=== PATIENT | female | born 1955 ===

== ENCOUNTER 2018-10-27 06:57 | Day surgery (SDC) | payer OTHER ==
[2016-07-30 08:21] VITALS: BMI 26.4
[2018-10-27 07:35] VITALS: TEMP 97.8
[2018-10-27] MEDS ORDERED: Propofol 10 mg/ml Inj (20 ML) ONE (08:34)
[2018-10-27] MEDS ORDERED: Lactated Ringer's 1,000 ML IV ONE (08:43)
--- NOTE | 2018-10-27 08:47 | CP.SDSHP ---
Same Day Surgery H & P - History Proposed Procedure: EGD Pre-Op Diagnosis: SEE NOTES - Previous Medical/Surgical History Cardiac: Hypertension Pulmonary: Asthma Neuro: Backaches, Other Misc: Other - Allergies Allergies: Allergies No Known Allergies Allergy (Verified 07/30/16 08:21) - Physical Exam General Appearance: N Vital Signs: Vital Signs 10/27/18 07:31 Temperature 97.8 F Pulse Rate 63 Respiratory 19 Rate Blood Pressure 115/59 L O2 Sat by Pulse 100 Oximetry Mental Status: Alert & Oriented x3 Neuro: WNL Heart: Other - {Optional Preform as Required} Breast: WNL Abdomen: Other Rectal: Other Integument: WNL : WNL Ortho: Other ENT: WNL - Impression Pt. Evaluated Today:Candidate for Anesthesia & Procedure: Yes - Date & Time Time: 08:47 Short Stay Discharge - Short Stay Discharge Admitting Diagnosis/Reason for Visit: DYSPEPSIA Disposition: HOME/ ROUTINE
[2018-10-27] MEDS ORDERED: Lidocaine Hydrochloride 5 ML INJ ONE (08:48)
[2018-10-27] MEDS ORDERED: Belladonna-Phenobarbital PO STA (08:48)
[2018-10-27] MEDS ORDERED: Midazolam 2 MG/2 ML VIAL ONE (08:49)
[2018-10-27 09:23] VITALS: O2SAT 100
[2018-10-27 09:37] VITALS: RESP 18
[2018-10-27 09:56] VITALS: BP 126/63; PULSE 51
== END 2018-10-27 09:55 | disposition home or self-care (01) ==
LOC: C.ENDO 06:57
PROVIDERS: ATTEND Specialist
DX: K29.50 Unspecified chronic gastritis without bleeding (principal); K25.9 Gastric ulcer, unspecified as acute or chronic, without hemorrhage or perforation; K44.9 Diaphragmatic hernia without obstruction or gangrene; K21.0 Gastro-esophageal reflux disease with esophagitis; I10 Essential (primary) hypertension; J45.909 Unspecified asthma, uncomplicated; R10.13 Epigastric pain
CPT/HCPCS: 43239; 88305; 88342; J2250; J2704; J7120